=== PATIENT | male | born 1995 | race Caucasian/White ===

== ENCOUNTER 2016-05-14 10:30 | Emergency (ER) | payer OTHER ==
[2016-05-14 10:38] VITALS: BP 144/76
--- NOTE | 2016-05-14 11:09 | ED ---
Lower Extremity - History of Current Complaint Chief Complaint: EDExtremityLower Stated Complaint: LT ANKLE INJURY Hx Obtained From: Patient Mechanism Of Injury: Twisted, Unknown - twisted ankle after jumping up playing basketball Onset of Pain: Immediate Onset/Duration: Hours - last lucius Severity Initially: Severe Severity Currently: Moderate Pain Intensity: 9 Location: Is Discrete @ - L ankle Character Of Pain: Throbbing, Stiffness Associated Signs And Symptoms: Positive: Swelling, Bruising Aggravating Factor(s): Standing, Ambulation Alleviating Factor(s): Rest, Elevation, Ice Able to Bear Weight: Yes - with pain and limp - Allergies/Home Medications Allergies/Adverse Reactions: Allergies Allergy/AdvReac Type Severity Reaction Status Date / Time No Known Allergies Allergy Verified 05/14/16 10:35 PMH/Surg Hx/FS Hx/Imm Hx Previously Healthy: Yes Endocrine/Hematology History: Denies: Hx Diabetes Cardiovascular History: Denies: Hx Hypotension, Hx Hypertension Respiratory History: Denies: Hx Asthma Musculoskeletal History: Denies: Other Musculoskeletal History Psychiatric History: Denies: Hx Anxiety, Hx Depression Infectious Disease History: No Infectious Disease History: Denies: Traveled Outside the [place] in Last 30 Days - Family History Known Family History: Positive: None - Social History Alcohol Use: None Substance Use Type: Reports: Marijuana, Prescribed Substance Use Comment - Amount & Last Used: Clonipine, Ritilin, and cocaine while in [place] Smoking Status (MU): Never Smoked Tobacco Review of Systems Constitutional: Negative Cardiovascular: Negative Respiratory: Negative Musculoskeletal: Other - L ankle pain Negative: Rash Neurological: Negative Psychological: Normal All Other Systems Reviewed And Are Negative: Yes Physical Exam Triage Information Reviewed: Yes Vital Signs On Initial Exam: Initial Vitals Temp Pulse Resp BP Pulse Ox 97.9 F 80 16 144/76 97 05/14/16 10:35 05/14/16 10:35 05/14/16 10:35 05/14/16 10:35 05/14/16 10:35 Vital Signs Reviewed: Yes Appearance: Positive: Well-Appearing, No Pain Distress, Well-Nourished Skin: Positive: Warm, Skin Color Reflects Adequate Perfusion, Dry Respiratory/Lung Sounds: Positive: Clear to Auscultation Cardiovascular: Positive: Normal, RRR, Pulses are Symmetrical in both Upper and Lower Extremities Musculoskeletal: Positive: Abnormal @ - decreased ROM on extremes L ankle swollen, ecchymosis Neurological: Positive: Normal, Sensory/Motor Intact, Alert, Oriented to Person Place, Time Psychiatric: Positive: Normal Diagnostics - Vital Signs Vital Signs Temp Pulse Resp BP Pulse Ox 05/14/16 10:35 97.9 F 80 16 144/76 97 - Laboratory Lab Statement: Any lab studies that have been ordered have been reviewed, and results considered in the medical decision making process. Lower Extremity Course/Dx - Diagnoses Differential Diagnosis/HQI/PQRI: Positive: Fracture (Closed), Sprain, Strain Provider Diagnoses: Ankle sprain Discharge - Discharge Plan Condition: Stable Disposition: HOME Patient Education Materials: Ankle Sprain (ED), Ankle Stirrup Splint (ED), Ankle Exercises (GEN) Referrals: [facility] ROBEL Adorno [Primary Care Provider] - 5 Days (if not improving) Additional Instructions: Ice and elevate ankle use caroline and ankle splint for 1 week and then as needed ibuprofen 800mg every 6 hours as needed for pain
--- NOTE | 2016-05-14 11:54 | RAD ---
Indication: Left ankle pain pain. 3 views of the ankle demonstrate soft tissue swelling laterally. There is no fracture or dislocation. No other bone or joint abnormality is identified. Mild soft tissue swelling is noted laterally. IMPRESSION: Soft tissue swelling laterally without evidence of fracture.
== END 2016-05-14 12:05 | disposition home or self-care (01) ==
LOC: ED 10:30
DX: S93.402A Sprain of unspecified ligament of left ankle, initial encounter (principal); X50.9XXA Other and unspecified overexertion or strenuous movements or postures, initial encounter; Y93.67 Activity, basketball; Y92.9 Unspecified place or not applicable
CPT/HCPCS: 99281

== ENCOUNTER 2016-08-13 21:05 | Emergency (ER) | payer OTHER ==
[2016-08-13 21:10] VITALS: BP 131/89
[2016-08-13] MEDS ORDERED: predniSONE TAB* 20 MG PO ONE (22:03)
[2016-08-13] MEDS ORDERED: Amoxicillin/Clavulanate TAB* 875 MG PO ONE (22:04)
--- NOTE | 2016-08-13 22:41 | ED ---
Donnie Nieves Janilya, scribed for Nina Flores MD on 08/13/16 at 2120 . Throat Pain/Nasal Congestion - HPI Summary HPI Summary: A 21 y/o male came in to [facility] presenting w/ a gradual onset of constant sore throat starting Monday, August 07, 2016. Pt states he had low grade fever and congestion. Pt was not tested for strep. Pt took Zithromax w/o prescription, provided by his friend. He felt somewhat better. However, on Monday morning, , pt felt worse. He reports swollen neck, inflamed tonsils, and ear pain. Pt denies vomiting. - History of Current Complaint Chief Complaint: EDThroatPain Time Seen by Provider: 08/13/16 21:15 Hx Obtained From: Patient Onset/Duration: Gradual Onset, Lasting Days, Still Present Severity: Moderate - Allergies/Home Medications Allergies/Adverse Reactions: Allergies Allergy/AdvReac Type Severity Reaction Status Date / Time No Known Allergies Allergy Verified 05/19/16 15:26 PMH/Surg Hx/FS Hx/Imm Hx Previously Healthy: Yes Endocrine/Hematology History: Denies: Hx Diabetes Cardiovascular History: Denies: Hx Hypotension, Hx Hypertension, Hx Pacemaker/ICD Respiratory History: Denies: Hx Asthma Musculoskeletal History: Denies: Other Musculoskeletal History Sensory History: Denies: Hx Hearing Aid Psychiatric History: Denies: Hx Anxiety, Hx Depression, Hx Panic Disorder - Surgical History Surgery Procedure, Year, and Place: DEVIATED SEPTUM - Xs 2. SPORTS HERNIA Xs 2 Infectious Disease History: No Infectious Disease History: Reports: Traveled Outside the [place] in Last 30 Days - [place] - Family History Known Family History: Negative: Diabetes - Social History Occupation: Student Alcohol Use: None Substance Use Type: Reports: Marijuana, Prescribed Substance Use Comment - Amount & Last Used: Clonipine, Ritilin, and cocaine while in [place] Smoking Status (MU): Never Smoked Tobacco Review of Systems Positive: Fever Positive: Sore Throat, Ear Ache, Nasal Discharge, Other - swollen neck, and swollen tonsils Negative: Vomiting All Other Systems Reviewed And Are Negative: Yes Physical Exam Triage Information Reviewed: Yes Vital Signs On Initial Exam: Initial Vitals Temp Pulse Resp BP Pulse Ox 98.7 F 70 14 131/89 97 08/13/16 21:08 08/13/16 21:08 08/13/16 21:08 08/13/16 21:08 08/13/16 21:08 Vital Signs Reviewed: Yes Appearance: Positive: Well-Appearing, No Pain Distress Skin: Positive: Warm, Skin Color Reflects Adequate Perfusion Eyes: Positive: EOMI, DRE ENT: Positive: Pharynx normal, TMs normal, Tonsillar swelling Neck: Positive: Supple, Nontender Respiratory/Lung Sounds: Positive: Clear to Auscultation, Breath Sounds Present. Negative: Rales, Rhonchi, Wheezes Cardiovascular: Positive: RRR, Pulses are Symmetrical in both Upper and Lower Extremities. Negative: Murmur, Rub, Other - no gallops Abdomen Description: Positive: Nontender, Soft. Negative: Distended, Guarding - no rebound Bowel Sounds: Positive: Present Musculoskeletal: Positive: Strength/ROM Intact. Negative: Edema Left, Edema Right Neurological: Positive: Sensory/Motor Intact, Alert, Oriented to Person Place, Time, CN Intact II-III Psychiatric: Positive: Affect/Mood Appropriate Diagnostics - Vital Signs Vital Signs Temp Pulse Resp BP Pulse Ox 08/13/16 21:08 98.7 F 70 14 131/89 97 - Laboratory Lab Results: Lab Results 08/13/16 Range/Units 21:13 Group A Strep Rapid Positive H (Negative) Lab Statement: Any lab studies that have been ordered have been reviewed, and results considered in the medical decision making process. EENT Course/Dx - Course Course Of Treatment: A 21 y/o male came in to [facility] presenting w/ a gradual onset of constant sore throat starting Sunday, August 07, 2016. Pt states he had low grade fever and congestion. Pt was not tested for strep. Pt took Zithromax w/o prescription, provided by his friend. He felt somewhat better. However, on Monday morning, 08/12/2016, pt felt worse. He reports swollen neck, inflamed tonsils, and ear pain. Pt denies vomiting. Pt already had mono and given right ear otitis media and throat pt started on augmentin and prednisone, strep ended up coming back positive. He was offered IV fluids but didn't want any and reports he will take ibuprofen and tylenol at home - Diagnoses Provider Diagnoses: Tonsillitis Discharge - Discharge Plan Condition: Stable Disposition: HOME Prescriptions: Amoxicillin/Clavulanate TAB* [Augmentin TAB 875*] 875 mg PO BID #12 tab predniSONE TAB* [Deltasone TAB*] 60 mg PO DAILY #4 tab Patient Education Materials: Tonsillitis (ED) Referrals: [facility] [Primary Care Provider] - 2 Days The documentation as recorded by the Donnie santana Janilya accurately reflects the service I personally performed and the decisions made by me, Nina Flores MD.
== END 2016-08-13 22:27 | disposition home or self-care (01) ==
LOC: ED 21:05
DX: J03.90 Acute tonsillitis, unspecified (principal); J02.9 Acute pharyngitis, unspecified; H92.09 Otalgia, unspecified ear; R50.9 Fever, unspecified
CPT/HCPCS: 87651; 99282; A9270-GY; J7512